=== PATIENT | female | born 1990 | race Caucasian/White ===

== ENCOUNTER → 2016-07-28 | Outpatient (CLI) | payer OTHER ==
--- NOTE | 2016-07-28 16:54 | US ---
Dear Dr. Hamilton, Thank you very much for allowing us to see your patient, Caroline Hou. As you know, she is a 25 year old, who was asked to see us to confirm dating and for 1st trimester genetic screening. This i s a twin . She denies any cramping, leakage of fluid, or vaginal bleeding. LMP: 05/09/16, consistent with a 9 week US Gestational Age by Dates: 11 weeks 3 days EDC: 02/13/17 US FINDINGS: Number: 2 Chorionicity: Lambda sign seen with thick intertwin membrane Twin A Placenta: Posterior Position: Inferior uterus FHR: 179 bpm CRL: 50 mm Gestational Age: 11 weeks 3 days Nuchal Translucency: 0.9 mm Nasal Bone: Present Evaluation of first trimester anatomy shows a normal calvarium, choroid plexus, legs, and arms. Twin B Placenta: Posterior Position: Superior uterus FHR: 172 bpm CRL: 53 mm Gestational Age: 11 weeks 5 days Nuchal Translucency: 0.9 mm Nasal Bone: Present Evaluation of first trimester anatomy shows a normal calvarium, choroid plexus, legs, and arms. IMPRESSION: 1. Genetic Screening: Today, we saw a normal NT measurement and a nasal bone for both twins. These fi ndings decrease the risk of Trisomy 21. We discussed the option of genetic screening with the S equential Screen which has a 95% detection rate for Trisomy 21, and which also screens for ONTD and T risomy 18. We also discussed the option of invasive testing with CVS or amniocentesis. We reviewed th at invasive testing is the only way to definitively exclude aneuploidy. After our discussion, t he patient opted to proceed with the Sequential Screen. - The 1st trimester blood draw was collected today - A date range for the 2nd trimester blood draw was given to the patient - Anatomy US at 19-20 weeks 2. EDC: Based on today's ultrasound, the CRL is consistent with the previously stated EDC of 02/13/17, which is based on LMP and 9 week US. This should be finalized as her due date. 3. Dichorionic-Diamniotic Twin : We reviewed the maternal risks of twin including gestational diabetes, gestational hypertension, and preeclampsia. We also reviewed the risk of preter m labor and delivery, with the average gestational age of twin delivery being 35 weeks. Lastly, we di scussed the increased nutritional needs of a twin with a recommended weight gain of 50 lbs in normal weight women. I also recommended iron supplementation throughout . - Anatomy US at 19-20 weeks - Growth US every 4 weeks after 20 week US - Twice weekly NSTs and weekly fluid checks starting at 36 weeks - Delivery by 38+0 weeks with mode of delivery depending on presentation and size discrepancy Thank you again for sending this patient to see us today. Approximately 30 minutes of a total visit t lynnette of 16 minutes were spent with this patient today in direct face to face counseling regarding gabrielle y's US findings and the above recommendations. If you have any questions, please do not hesitate to contact me at . Elizabeth Gutierrez MD Maternal- Medicine
--- NOTE | 2016-07-28 19:00 | US ---
First Trimester Twin Gestation Obstetrical Sonography with Nuchal Translucency Measurement Clinical History: 25-year-old female who presents for early screening evaluation. Technique: A curvilinear 5 MHz transducer was used to sonographically evaluate each twin gestation. M -mode Doppler was used. Cine clips are acquired. Dr. Elizabeth Gutierrez is present. Comparison Study: None available. LMP: 05/09/2016, indicating an age of 11 weeks 3 days, and an estimated date of delivery of 02/13/2017 . Findings: There is a "twin peak" (Lambda sign), consistent with a diamniotic dichorionic twin pregnan cy. Twin A is situated more inferiorly in the uterus, and there is normal amniotic fluid volume with a po sterior placenta and a heart rate of 179 bpm. The crown-rump length is 50 mm, correspondi ng to an age of 11 weeks 6 days. The nuchal translucency is normal, measuring 0.9 mm, and the nasal b one is present. Twin B is seen more superiorly in the uterus, and has normal amniotic fluid volume with a heart rate is 172 bpm. The placenta is forming posteriorly. The crown-rump length is 53 mm, corresponding to an age of 12 weeks 0 days. The nuchal translucency is normal, measuring 0.9 mm, and the nasal bone is present. There is no focal fibroid or subchorionic hemorrhage. The maternal right ovary measures 2.2 x 1.0 x 2 .6 cm, and the maternal left ovary measures 1.5 x 1.2 x 2.0 cm. Impression: There is a dichorionic diamniotic twin with each gestation having 2 normal early screening markers. The patient should return at 20 weeks gestation for more complete anatomic screening and repeat biome try. Please also refer to Dr. Elizabeth Gutierrez's separate assessments and specific recommendations for foll ow-up.
== END ==
LOC: FIMAGING 12:53
PROVIDERS: ATTEND Student in an Organized Health Care Education/Training Program
DX: O30.041 Twin pregnancy, dichorionic/diamniotic, first trimester (principal); Z3A.11 11 weeks gestation of pregnancy

== ENCOUNTER → 2016-09-19 | Outpatient (CLI) | payer OTHER | LOC: FIMAGING 11:57 | PROVIDERS: ATTEND Student in an Organized Health Care Education/Training Program | DX: O30.042 Twin pregnancy, dichorionic/diamniotic, second trimester (principal); Z3A.19 19 weeks gestation of pregnancy ==

== ENCOUNTER → 2016-10-24 | Outpatient (CLI) | payer OTHER | LOC: FIMAGING 14:51 | PROVIDERS: ATTEND Student in an Organized Health Care Education/Training Program | DX: O30.042 Twin pregnancy, dichorionic/diamniotic, second trimester (principal); Z3A.24 24 weeks gestation of pregnancy ==

== ENCOUNTER → 2016-11-21 | Outpatient (CLI) | payer OTHER | LOC: FIMAGING 13:09 | PROVIDERS: ATTEND Student in an Organized Health Care Education/Training Program | DX: O30.043 Twin pregnancy, dichorionic/diamniotic, third trimester (principal); Z3A.28 28 weeks gestation of pregnancy ==